=== PATIENT | male | born 1970 | race Caucasian/White ===

== ENCOUNTER 2017-03-14 20:18 | Emergency (ER) | payer SELFPAY ==
[2017-03-14 22:11] VITALS: BP 136/92
--- NOTE | 2017-03-14 22:27 | ER Document Report ---
ED Blood Pressure Problem - General Chief Complaint: Blood Pressure Problem Stated Complaint: BLOOD PRESSURE PROBLEMS Time Seen by Provider: 03/14/17 22:18 Notes: Patient is a 46-year-old male presents emergency department stating he had an elevated blood pressure reading at [facility]. He was told to come here for evaluation. Repeat blood pressure at time was 136/92. Patient denies any headache, dizziness, blurry vision, vision changes, chest pain, nausea, abdominal pain or back pain. Patient states he has not been previously diagnosed with blood pressure. Patient states that his was recently diagnosed with cancer so has been very stressed with that he also admits that he had rib fractures with a pneumothorax a couple weeks ago and he still has some discomfort in that area. States that he has not followed up with a primary care provider since that happened. Patient states he does not have a primary care provider. TRAVEL OUTSIDE OF THE [place] IN LAST 30 DAYS: No - Related Data Allergies/Adverse Reactions: hydromorphone [From Dilaudid] Adverse Reaction (Verified 03/14/17 22:09) Home Medications: Current Home Medications No Home Medications 03/14/17 [History] Past Medical History - Social History Smoking Status: Current Every Day Smoker Chew tobacco use (# tins/day): No Frequency of alcohol use: Rare Drug Abuse: None Family History: Reviewed & Not Pertinent Patient has suicidal ideation: No Patient has homicidal ideation: No Pulmonary Medical History: Reports: Hx Pneumonia Renal/ Medical History: Denies: Hx Peritoneal Dialysis Past Surgical History: Reports: Hx Orthopedic Surgery - Back - Immunizations Hx Diphtheria, Pertussis, Tetanus Vaccination: Yes Review of Systems - Review of Systems Constitutional: No symptoms reported EENT: No symptoms reported Cardiovascular: No symptoms reported Respiratory: No symptoms reported Gastrointestinal: No symptoms reported Skin: No symptoms reported Neurological/Psychological: See HPI -: Yes All other systems reviewed and negative Physical Exam - Vital signs Vitals: Temp Pulse Resp BP Pulse Ox 97.9 F 75 18 157/105 H 98 03/14/17 20:52 03/14/17 20:52 03/14/17 20:52 03/14/17 20:52 03/14/17 20:52 - Notes Notes: PHYSICAL EXAM GENERAL: Alert, interacts well. HEAD: Normocephalic, atraumatic. EYES: Pupils equal, round, and reactive to light. Extraocular movements intact. ENT: Oral mucosa moist, tongue midline. NECK: Full range of motion. Supple. Trachea midline. LUNGS: Clear to auscultation bilaterally, no wheezes, rales, or rhonchi. No respiratory distress. HEART: Regular rate and rhythm. No murmurs, gallops, or rubs. ABDOMEN: Soft, nondistended, nontender. No guarding, rebound, or rigidity.. Bowel sounds present in all 4 quadrants. EXTREMITIES: Moves all 4 extremities spontaneously. No edema, radial and dorsalis pedis pulses 2/4 bilaterally. No cyanosis. NEUROLOGICAL: Alert and oriented x4. Normal speech. PSYCH: Normal affect, normal mood. SKIN: Warm, dry, normal turgor. No rashes or lesions noted. Course - Re-evaluation Re-evalutation: 03/14/17 22:38 Patient is a 46-year-old male who is hemodynamic stable, no acute distress afebrile. Elevated blood pressure today does not require treatment. Discussed with patient signs and symptoms aware of any coronary return to the emergency department otherwise low clinical suspicion for ACS, hemorrhage, hypertensive emergency. Patient stable for discharge home with instruction to follow-up with primary care this week. Patient agrees to plan - Vital Signs Vital signs: Temp Pulse Resp BP Pulse Ox 98.4 F 68 18 136/92 H 97 03/14/17 22:10 03/14/17 22:10 03/14/17 22:10 03/14/17 22:10 03/14/17 22:10 Discharge - Discharge Clinical Impression: Elevated blood pressure reading Condition: Good Disposition: HOME, SELF-CARE Additional Instructions: HIGH BLOOD PRESSURE, NOT TREAT: When your blood pressure was taken today it was elevated. Today's reading was 136/92. We do not think you need to have your blood pressure treated today. Sometimes, stress or illness causes a temporary elevation of your blood pressure. We suggest that you get your blood pressure measured again during the next few days to see if this elevated blood pressure is more than a temporary abnormality. If your blood pressure is greater than 150/90 on each occasion, you must have treatment. Some simple things you can do to help are: If you have blood pressure medicine but aren't using it regularly, start taking it again. Get some aerobic exercise for at least 20 minutes on a daily basis. (See your doctor before beginning a new exercise program.) Eat a low-fat diet. Lose excess weight. Avoid salty foods and avoid adding salt to any of the foods you eat. Avoid diet pills, decongestants, "energizing" herbs, and other medicines that elevate blood pressure. If left untreated, hypertension greatly enhances your risk for developing heart disease and strokes. Please don't ignore this problem. FOLLOW-UP CARE: If you have been referred to a physician for follow-up care, call the physician s office for an appointment as you were instructed or within the next two days. If you experience worsening or a significant change in your symptoms, notify the physician immediately or return to the Emergency Department at any time for re-evaluation. Referrals: [facility] [Provider Group] - Follow up in 3-5 days CHINTAN GORMAN MD [ACTIVE STAFF] - Follow up in 3-5 days
== END 2017-03-14 22:35 | disposition home or self-care (01) ==
LOC: ER 20:18
DX: R03.0 Elevated blood-pressure reading, without diagnosis of hypertension (principal); F17.200 Nicotine dependence, unspecified, uncomplicated
CPT/HCPCS: 99283